=== PATIENT | male | born 1975 | race African-American/Black ===

== ENCOUNTER 2016-12-21 10:14 | Emergency (ER) | payer MEDICAID ==
[~2016-12-21] VITALS: Ht 182.9 cm; Wt 65.8 kg
[2016-12-21] MEDS ORDERED: TETANUS-DIPTH-ACEL PERTUSSIS 0.5ML SYRG IM ONE (12:00)
[2016-12-21] MEDS ORDERED: cefTRIAXone SOD 1,000 MG VL IM ONE (12:00)
[2016-12-21 12:04] VITALS: BP 128/81
== END 2016-12-21 13:09 | disposition home or self-care (01) ==
LOC: ER 10:14
DX: S01.511A Laceration without foreign body of lip, initial encounter (principal); F12.10 Cannabis abuse, uncomplicated; F17.210 Nicotine dependence, cigarettes, uncomplicated; K13.0 Diseases of lips; V23.4XXA Motorcycle driver injured in collision with car, pick-up truck or van in traffic accident, initial encounter; Y93.89 Activity, other specified; Y99.8 Other external cause status; Y92.89 Other specified places as the place of occurrence of the external cause
CPT/HCPCS: 90471; 90715; 96372; 99284; J0696

== ENCOUNTER 2016-12-23 10:14 | Emergency (ER) | payer MEDICAID ==
[~2016-12-23] VITALS: Ht 182.9 cm; Wt 65.8 kg
[2016-12-23 10:24] VITALS: BP 117/75
== END 2016-12-23 11:07 | disposition home or self-care (01) ==
LOC: ER 10:14
DX: K13.0 Diseases of lips (principal); F17.210 Nicotine dependence, cigarettes, uncomplicated; F12.10 Cannabis abuse, uncomplicated

== ENCOUNTER 2016-12-31 14:12 | Emergency (ER) | payer MEDICAID ==
[~2016-12-31] VITALS: Ht 182.9 cm; Wt 65.8 kg
[2016-12-31 15:43] VITALS: BP 165/70
== END 2016-12-31 15:52 | disposition home or self-care (01) ==
LOC: ER 14:12
DX: S00.531D Contusion of lip, subsequent encounter (principal); F17.210 Nicotine dependence, cigarettes, uncomplicated; F12.10 Cannabis abuse, uncomplicated

== ENCOUNTER 2017-04-15 07:07 | Emergency (ER) | payer MEDICAID ==
[~2017-04-15] VITALS: Ht 182.9 cm; Wt 70.3 kg
[2017-04-15 08:29] VITALS: BP 134/84
== END 2017-04-15 09:00 | disposition home or self-care (01) ==
LOC: ER 07:07
DX: S80.211A Abrasion, right knee, initial encounter (principal); S50.311A Abrasion of right elbow, initial encounter; F17.210 Nicotine dependence, cigarettes, uncomplicated; V29.9XXA Motorcycle rider (driver) (passenger) injured in unspecified traffic accident, initial encounter; Y93.89 Activity, other specified; Y99.8 Other external cause status; Y92.488 Other paved roadways as the place of occurrence of the external cause